=== PATIENT | male | born 1995 | race Two or more races ===

== ENCOUNTER 2017-06-20 11:41 | Emergency (ER) | payer MEDICAID ==
[~2017-06-20] VITALS: Ht 172.7 cm; Wt 79.4 kg
[2017-06-20 13:38] VITALS: BP 118/73
== END 2017-06-20 14:01 | disposition home or self-care (01) ==
LOC: ER 11:41
DX: S61.237A Puncture wound without foreign body of left little finger without damage to nail, initial encounter (principal); S50.812A Abrasion of left forearm, initial encounter; R21 Rash and other nonspecific skin eruption; W18.39XA Other fall on same level, initial encounter; Y93.89 Activity, other specified; Y92.89 Other specified places as the place of occurrence of the external cause; Y99.8 Other external cause status

== ENCOUNTER 2019-04-24 18:09 | Emergency (ER) | payer MEDICAID ==
[~2019-04-24] VITALS: Ht 167.6 cm; Wt 56.7 kg
[2019-04-24 21:16] LABS: Basophils # (auto) 0.1 uL; Basophils % (auto) 0.9 % (0.0-2.0); Eosinophils # (auto) 0.1 uL; Eosinophils % (auto) 1.7 % (0.0-7.0); Hematocrit 40.5 % (41.0-53.0); Hemoglobin 14.4 g/dL (13.5-17.5); Lymphocytes # (auto) 1.4 uL; Lymphocytes % (auto) 21.6 % (10.0-50.0); Mean Corpuscular Hemoglobin 32.2 pg (28.0-32.0); Mean Corpuscular Hgb Conc. 35.5 g/dL (32.0-36.0); Mean Corpuscular Volume 90.6 fL (80.0-100.0); Monocytes # (auto) 0.4 uL; Neutrophils # (auto) 4.5 uL; Neutrophils % (auto) 69.8 % (37.0-80.0); Platelet Count (auto) 189 10^3/uL (140-450); Red Blood Cells 4.47 10^6/uL (4.5-5.90); Red Cell Distribution Width 13.5 % (11.8-14.3); White Blood Cell 6.5 10^3/uL (4.4-10.8)
[2019-04-24 21:22] LABS: Albumin 4.9 g/dL (3.4-5.0); Anion Gap 6 (5-15); Blood Alcohol < 3.0 mg/dL (0-5); Blood Urea Nitrogen 12 mg/dL (7-18); Calcium 9.4 mg/dL (8.5-10.1); Carbon Dioxide 25 mmol/L (21-32); Chloride 109 mmol/L (98-107); Glucose 94 mg/dL (74-106); Potassium 4.2 mmol/L (3.5-5.1); Sodium 140 mmol/L (136-145)
[2019-04-24 21:24] LABS: Alanine Aminotransferase 18 U/L (16-61); Aspartate Aminotransferase 15 U/L (15-37); BUN/Creatinine Ratio 17.1; GFR African American 178 mL/min; GFR Non-African American 147 mL/min
[2019-04-24 21:25] LABS: Acetaminophen < 2.0 ug/mL (10-30); Salicylate < 0.2 mg/dL (2.8-20.0)
[2019-04-24 21:26] LABS: Alkaline Phosphatase 57 U/L (45-117); Total Protein 7.8 g/dL (6.4-8.2)
[2019-04-24 23:09] LABS: Alcohol, Urine < 3.0 mg/dL (0-5); Amphetamine Screen, Urine NEGATIVE (NEGATIVE); Barbiturate Scree,Urine NEGATIVE (NEGATIVE); Benzodiazephine Screen, Urine NEGATIVE (NEGATIVE); Cannabinoid Screen, Urine POSITIVE (NEGATIVE); Cocaine Screen, Urine NEGATIVE (NEGATIVE); Opiate Scree,Urine NEGATIVE (NEGATIVE); Phencyclidine Screen, Urine NEGATIVE (NEGATIVE)
[2019-04-25] MEDS ORDERED: LORazepam 0.5 MG TAB PO ONE (08:30)
[2019-04-25] MEDS ORDERED: LORazepam 0.5 MG TAB ONE (08:32)
[2019-04-25] MEDS ORDERED: LORazepam 0.5 MG TAB PO PRN (10:00)
[2019-04-25] MEDS: HALOPERIDOL 5 MG TAB PO SCH ×3 (10:59→23:49)
[2019-04-26] MEDS: HALOPERIDOL 5 MG TAB PO SCH ×3 (06:00→21:43)
[2019-04-27] MEDS: HALOPERIDOL 5 MG TAB PO SCH ×5 (07:08→22:33)
[2019-04-27] MEDS ORDERED: LORazepam 0.5 MG TAB PO PRN (13:00)
[2019-04-28 10:59] VITALS: BP 136/61
== END 2019-04-28 12:01 | disposition home or self-care (01) ==
LOC: EDBD 18:09 → ER 18:09
DX: F23 Brief psychotic disorder (principal); K92.1 Melena
CPT/HCPCS: 36415; 73120; 80053; 80307; 80320; 80329; 85025

== ENCOUNTER 2019-09-30 14:33 | Emergency (ER) | payer MEDICAID ==
[~2019-09-30] VITALS: Ht 165.1 cm; Wt 56.7 kg
[2019-09-30 14:43] VITALS: BP 136/86
[2019-09-30 15:20] LABS: Basophils # (auto) 0.1 10 ^3/uL (0-0.2); Basophils % (auto) 0.6 % (0.0-2.0); Eosinophils # (auto) 0.2 10 ^3/uL (0-0.8); Eosinophils % (auto) 1.9 % (0.0-7.0); Hematocrit 45.2 % (41.0-53.0); Hemoglobin 15.6 g/dL (13.5-17.5); Lymphocytes # (auto) 1.5 10 ^3/uL (0.4-5.4); Lymphocytes % (auto) 16.3 % (10.0-50.0); Mean Corpuscular Hemoglobin 32.6 pg (28.0-32.0); Mean Corpuscular Hgb Conc. 34.5 g/dL (32.0-36.0); Mean Corpuscular Volume 94.4 fL (80.0-100.0); Monocytes # (auto) 0.8 10 ^3/uL (0-1.3); Neutrophils # (auto) 6.8 10 ^3/uL (1.6-8.6); Neutrophils % (auto) 72.2 % (37.0-80.0); Platelet Count (auto) 234 10^3/uL (140-450); Red Blood Cells 4.78 10^6/uL (4.5-5.90); Red Cell Distribution Width 13.2 % (11.8-14.3); White Blood Cell 9.4 10^3/uL (4.4-10.8)
[2019-09-30 15:40] LABS: Calcium 9.3 mg/dL (8.5-10.1); Potassium 3.8 mmol/L (3.5-5.1)
[2019-09-30 15:42] LABS: BUN/Creatinine Ratio 15.3
[2019-09-30 15:43] LABS: Salicylate < 1.7 mg/dL (2.8-20.0)
[2019-09-30 15:44] LABS: Bilirubin, Total 1.2 mg/dL (0.2-1.0); Total Protein 8.7 g/dL (6.4-8.2)
[2019-09-30 15:46] LABS: Acetaminophen < 2.0 ug/mL (10-30)
== END 2019-09-30 17:42 | disposition left against medical advice (07) ==
LOC: ER 14:33 → EDBD 14:33 → ER 17:42
DX: F20.9 Schizophrenia, unspecified (principal); F31.9 Bipolar disorder, unspecified; Z53.21 Procedure and treatment not carried out due to patient leaving prior to being seen by health care provider
CPT/HCPCS: 36415; 80053; 80329; 85025